=== PATIENT | female | born 1995 | race American Indian/Alaskan Native ===

== ENCOUNTER 2017-04-01 02:45 | Emergency (ER) | payer SELFPAY ==
[2017-04-01 02:51] VITALS: BMI 25.8
[2017-04-01 02:53] VITALS: BP 118/64; PULSE 82; RESP 18; TEMP 98.4; O2SAT 99
--- NOTE | 2017-04-01 03:04 | ED PDOC ---
Arrival/HPI - General Chief Complaint: Allergic Reaction Time Seen by Provider: 04/01/17 02:57 Historian: Patient - History of Present Illness Narrative History of Present Illness (Text): 04/01/17 03:03 A 22 year old female, whose past medical history includes pyelonephritis, presents to the emergency department complaining of allergic reaction prior to arrival. Patient reports she has a stuffy nose and rhinorrhea. Patient has no rashes, hives, or any other complaints. No PMD Time/Duration: Prior to Arrival Past Medical History - Provider Review Nursing Documentation Reviewed: Yes - Past History Past History: No Previous - Infectious Disease Hx of Infectious Diseases: None - Tetanus Immunization Tetanus Immunization: Unknown - Past Medical History Past Medical History: No Previous - Cardiac Hx Cardiac Disorders: No - Pulmonary Hx Respiratory Disorders: No - Neurological Hx Neurological Disorder: No - HEENT Hx HEENT Disorder: Yes (Right eye surgery) - Renal Hx Renal Disorder: Yes Hx Pyelonephritis: Yes - Endocrine/Metabolic Hx Endocrine Disorders: No - Hematological/Oncological Hx Blood Disorders: No - Integumentary Hx Dermatological Disorder: No - Musculoskeletal/Rheumatological Hx Musculoskeletal Disorders: No Hx Falls: No - Gastrointestinal Hx Gastrointestinal Disorders: No - Genitourinary/Gynecological Hx Genitourinary Disorders: Yes Hx Urinary Tract Infection: Yes - Psychiatric Hx Psychophysiologic Disorder: No Hx Substance Use: No - Past Surgical History Past Surgical History: Non-Contributing - Surgical History Hx Eye Surgery: Yes (R eye x2) Other/Comment: . Right eye surgery - Anesthesia Hx Anesthesia: Yes Hx Anesthesia Reactions: No - Suicidal Assessment Feels Threatened In Home Enviroment: No Family/Social History - Physician Review Nursing Documentation Reviewed: Yes Family/Social History: No Known Family HX Smoking Status: Never Smoked Hx Alcohol Use: Yes Hx Substance Use: No Hx Substance Use Treatment: No Allergies/Home Meds Allergies/Adverse Reactions: Allergies No Known Allergies Allergy (Verified 07/26/16 18:17) Review of Systems - Physician Review All systems were reviewed & negative as marked: Yes - Review of Systems Constitutional: absent: Fevers, Night Sweats ENT: Rhinorrhea, Sinus Congestion Cardiovascular: absent: Chest Pain Gastrointestinal: absent: Abdominal Pain Skin: absent: Rash, Other (no hives) Physical Exam Vital Signs Reviewed: Yes Vital Signs Temp Pulse Resp BP Pulse Ox 04/01/17 02:51 98.4 F 82 18 118/64 99 Temperature: Afebrile Blood Pressure: Normal Pulse: Regular Respiratory Rate: Normal Appearance: Positive for: Well-Appearing Pain Distress: None Mental Status: Positive for: Alert and Oriented X 3 - Systems Exam Head: Present: Atraumatic, Normocephalic Pupils: Present: PERRL Extroacular Muscles: Present: EOMI Conjunctiva: Present: Normal Mouth: Present: Moist Mucous Membranes Neck: Present: Normal Range of Motion Respiratory/Chest: Present: Clear to Auscultation, Good Air Exchange. No: Respiratory Distress, Accessory Muscle Use Cardiovascular: Present: Regular Rate and Rhythm, Normal S1, S2. No: Murmurs Abdomen: Present: Normal Bowel Sounds. No: Tenderness, Distention, Peritoneal Signs Back: Present: Normal Inspection Upper Extremity: Present: Normal Inspection. No: Cyanosis, Edema Lower Extremity: Present: Normal Inspection. No: Edema Neurological: Present: GCS=15, CN II-XII Intact, Speech Normal Skin: Present: Warm, Dry, Normal Color. No: Rashes Psychiatric: Present: Alert, Oriented x 3, Normal Insight, Normal Concentration Medical Decision Making ED Course and Treatment: 04/01/17 03:05 Impression: 22 year old female with allergic reaction. No acute findings on physical exam; no rashes/hives are present. Plan: -- Sudafed Tab -- Reassess and disposition Prior Visits: Notes and results from previous visits were reviewed. Patient was last seen in the emergency department on 07/26/2016 for intermittent crampy atraumatic left medial thigh pain. Patient was discharged home. Progress Notes: - Medication Orders Current Medication Orders: Discontinued Medications Pseudoephedrine HCl (Sudafed Tab) 30 mg PO STAT STA Stop: 04/01/17 03:02 Last Admin: 04/01/17 03:16 Dose: 30 mg - Scribe Statement The provider has reviewed the documentation as recorded by the Kimberly Strickland Provider Scribe Attestation: All medical record entries made by the Scribe were at my direction and personally dictated by me. I have reviewed the chart and agree that the record accurately reflects my personal performance of the history, physical exam, medical decision making, and the department course for this patient. I have also personally directed, reviewed, and agree with the discharge instructions and disposition. Disposition/Present on Arrival - Present on Arrival Any Indicators Present on Arrival: No History of DVT/PE: No History of Uncontrolled Diabetes: No Urinary Catheter: No History of Decub. Ulcer: No History Surgical Site Infection Following: None - Disposition Have Diagnosis and Disposition been Completed?: Yes Diagnosis: Allergic rhinitis Disposition: HOME/ ROUTINE Disposition Time: 03:30 Condition: GOOD Discharge Instructions (ExitCare): Allergic Rhinitis (ED) Prescriptions: Fexofenadine/Pseudoephedrine [Johanna-D 12 Hour Tablet] 1 each PO BID #20 tab.er.12h Fluticasone Nasal [Flonase] 2 actuation NS DAILY #1 spr Referrals: PCP,NO [Primary Care Provider] - Follow up with primary Forms: [employer] (Macedonian)
== END 2017-04-01 03:27 | disposition home or self-care (01) ==
LOC: ED 02:45
DX: J30.9 Allergic rhinitis, unspecified (principal)

== ENCOUNTER 2017-04-08 16:17 | Emergency (ER) | payer MEDICAID, OTHER ==
[2017-04-08 16:18] VITALS: BMI 25.8
[2017-04-08 16:53] VITALS: BP 120/80; PULSE 71; RESP 18; TEMP 99; O2SAT 98
--- NOTE | 2017-04-08 17:02 | ED PDOC ---
Arrival/HPI - General Chief Complaint: Trauma Time Seen by Provider: 04/08/17 16:45 Historian: Patient - History of Present Illness Narrative History of Present Illness (Text): 04/08/17 22 yo female come in for evaluation of left sided headache, some Left sided scalp tenderness gradually developed since yesterday after collide with another player, while playing basketball. Pt sts, (-) helmet, felt little dizzy after the accident. Otherwise, pt denies LOC, syncope, visual changes, denies worse headache of life, N/V, neck pain, CP, SOB, dyspnea, palpitation, abd. pain, denies weakness, deformity, sensory or vascular deficits to B/L UEs and LEs, denies anticoagulation tx, denies previous hx of head injury or concussion. Ambulate to Ed for evaluation, not in any apparent distress. Past Medical History - Provider Review Nursing Documentation Reviewed: Yes - Travel History Have you recently traveled outside [place] w/in the past 3 mons?: No - Past History Past History: No Previous - Infectious Disease Hx of Infectious Diseases: None - Tetanus Immunization Tetanus Immunization: Unknown - Reproductive Menopause: No - Past Medical History Past Medical History: No Previous - Cardiac Hx Cardiac Disorders: No - Pulmonary Hx Respiratory Disorders: No - Neurological Hx Neurological Disorder: No - HEENT Hx HEENT Disorder: Yes (Right eye surgery) - Renal Hx Renal Disorder: Yes Hx Pyelonephritis: Yes - Endocrine/Metabolic Hx Endocrine Disorders: No - Hematological/Oncological Hx Blood Disorders: No - Integumentary Hx Dermatological Disorder: No - Musculoskeletal/Rheumatological Hx Musculoskeletal Disorders: No Hx Falls: No - Gastrointestinal Hx Gastrointestinal Disorders: No - Genitourinary/Gynecological Hx Genitourinary Disorders: Yes Hx Urinary Tract Infection: Yes - Psychiatric Hx Psychophysiologic Disorder: No Hx Substance Use: No - Past Surgical History Past Surgical History: Non-Contributing - Surgical History Hx Eye Surgery: Yes (R eye x2) Other/Comment: . Right eye surgery - Anesthesia Hx Anesthesia: Yes Hx Anesthesia Reactions: No - Suicidal Assessment Feels Threatened In Home Enviroment: No Family/Social History - Physician Review Nursing Documentation Reviewed: Yes Family/Social History: No Known Family HX Smoking Status: Never Smoked Hx Alcohol Use: Yes Hx Substance Use: No Hx Substance Use Treatment: No Allergies/Home Meds Allergies/Adverse Reactions: Allergies seasonal Allergy (Uncoded 04/08/17 16:52) CONGESTION Home Medications: Home Meds Medication Instructions Recorded Confirmed Fexofenadine/Pseudoephedrine 1 each PO DAILY 04/08/17 04/08/17 [Johanna-D 12 Hour Tablet] Review of Systems - Review of Systems Constitutional: Normal Eyes: Normal ENT: Normal Respiratory: Normal Cardiovascular: Normal Gastrointestinal: Normal Genitourinary Female: Normal Musculoskeletal: Normal Skin: Normal Neurological: Headache. absent: Dizziness, Focal Weakness, Gait Changes, Speech Changes Endocrine: Normal Hemo/Lymphatic: Normal Psychiatric: Normal Physical Exam Vital Signs Temp Pulse Resp BP Pulse Ox 04/08/17 16:35 99 F 71 18 120/80 98 Temperature: Afebrile Blood Pressure: Normal Pulse: Regular Respiratory Rate: Normal Appearance: Positive for: Well-Appearing, Non-Toxic, Comfortable Pain Distress: None Mental Status: Positive for: Alert and Oriented X 3 - Systems Exam Head: Present: Normocephalic, Tenderness (mild over Left parietal scalp. No palpable bony step offs deformity, no edema.) Pupils: Present: PERRL Extroacular Muscles: Present: EOMI Conjunctiva: Present: Normal Ears: Present: NORMAL TM, Normal Canal Mouth: Present: Moist Mucous Membranes, Normal Lips. No: Drooling, Trismus Nose (External): Present: Atraumatic Nose (Internal): No: Septal Deviation, Septal Hematoma Neck: Present: Normal Range of Motion, Trachea Midline. No: MIDLINE TENDERNESS Respiratory/Chest: Present: Clear to Auscultation, Good Air Exchange. No: Respiratory Distress, Accessory Muscle Use Cardiovascular: Present: Regular Rate and Rhythm, Normal S1, S2. No: Murmurs Abdomen: Present: Normal Bowel Sounds. No: Tenderness, Distention, Peritoneal Signs Back: Present: Normal Inspection. No: Paraspinal Tenderness Upper Extremity: Present: Normal ROM, NORMAL PULSES. No: Deformity Lower Extremity: Present: Normal ROM. No: Edema, Tenderness, Deformity Neurological: Present: GCS=15, Speech Normal, Motor Func Grossly Intact, Normal Sensory Function, Normal Cerebellar Funct, Norm Deep Tendon Reflexes, Gait Normal Skin: Present: Warm, Dry, Normal Color. No: Rashes Psychiatric: Present: Alert, Oriented x 3, Normal Insight, Normal Concentration Medical Decision Making ED Course and Treatment: 04/08/17 On re-evaluation, pt is afebrile, hemodyhanmicaly stable. Non-toxic. Ambulatory in ED with stable gait. Head: AT/NC neck: Supple, (-) midline tenderness. Lungs: CTA B/L, BS equal B/L. ABd: benign. Neurologicaly intact. Pt was offered imaging, CT head w/o contrast. Risk vs benefits discussed with pt , pt refused imaging at present time. Pt has clinical findings c/w head injury/post concussion syndrome. Pt advised OBS 48 hrs for any sign of head injury-return to ED immediately for re-evaluation. Pt understand stable for discharge now. Disposition/Present on Arrival - Present on Arrival Any Indicators Present on Arrival: No History of DVT/PE: No History of Uncontrolled Diabetes: No Urinary Catheter: No History of Decub. Ulcer: No History Surgical Site Infection Following: None - Disposition Have Diagnosis and Disposition been Completed?: Yes Diagnosis: Head injury, Post concussive syndrome Disposition: HOME/ ROUTINE Disposition Time: 17:00 Patient Plan: Discharge Patient Problems: Current Active Problems Problem Status Onset Head injury Acute Post concussive syndrome Acute Condition: STABLE Discharge Instructions (ExitCare): Head Injury (ED), Concussion (ED) Additional Instructions: "BRAIN REST" FOR 1 WEEK, AVOID PROLONG EYE STRAINING:READING, COMPUTER, TV OR ANY OTHER ACTIVITY FOR 1 WEEK NO PHYSICAL ACTIVITY FOR 1 WEEK OBSERVE 48 HOURS FOR ANY SIGN OF HEAD INJURY-INTRACTABLE HEADACHE, VISUAL CHANGES, VOMITING, LETHARGY OR ANY OTHER NEW CHANGES-RETURN TO ED IMMEDIATELY FOR RE-EVALUATION. FOLLOW UP WITH PMD, CONCUSSION CLINIC AT [facility] IN 2-3 DAYS FOR RE -EVALUATION. Referrals: [facility] at [facility] [place] [Outside] - Follow up with primary [facility] [Provider Group] - Follow up with primary Forms: [employer] (Montenegrin), SCHOOL NOTE
== END 2017-04-08 17:13 | disposition home or self-care (01) ==
LOC: ED 16:17
DX: S09.90XA Unspecified injury of head, initial encounter (principal); W51.XXXA Accidental striking against or bumped into by another person, initial encounter; Y93.67 Activity, basketball; Y92.89 Other specified places as the place of occurrence of the external cause; F07.81 Postconcussional syndrome

== ENCOUNTER 2017-05-13 11:25 | Emergency (ER) | payer MEDICAID ==
[2017-05-13 11:26] VITALS: BMI 25.8
[2017-05-13 12:52] LABS: PH,URINE 7.5 (4.7-8.0); URINE BILIRUBIN NEGATIVE (NEGATIVE); URINE BLOOD LARGE (NEGATIVE); URINE GLUCOSE (UA) NEGATIVE (NEGATIVE); URINE KETONE NEGATIVE (NEGATIVE); URINE LEUKOCYTE ESTERASE SMALL Leu/uL (NEGATIVE); URINE PROTEIN TRACE mg/dL (<30 mg/dL)
[2017-05-13 12:55] LABS: URINE APPEARANCE CLEAR (CLEAR); URINE COLOR YELLOW (YELLOW)
[2017-05-13 13:03] LABS: BASO # 0.02 K/mm3 (0.0-2.0); BASO % 0.1 % (0.0-3.0); EOS # 0.2 (0.0-0.7); GRAN # 14.77 (1.4-6.5); HEMATOCRIT 36.5 % (36.0-48.0); LYMPH # 1.9 (1.2-3.4); LYMPH % 10.9 % (22.0-35.0); MEAN CELL VOLUME 87.7 fl (80.0-105.0); MEAN CORPUSCULAR HEMOGLOBIN 30.3 pg (25.0-35.0); MEAN CORPUSCULAR HGB CONC 34.5 g/dl (31.0-37.0); MEAN PLATELET VOLUME 9.5 fl (7.0-11.0); MONO # 0.9 (0.1-0.6); WHITE BLOOD COUNT 17.8 10^3/ul (4.5-11.0)
[2017-05-13 13:19] LABS: URINE RBC 25 - 30 /hpf (0-2)
[2017-05-13 13:20] LABS: URINE AMORPHOUS SEDIMENT FEW; URINE BACTERIA MANY (NEG)
[2017-05-13 13:30] LABS: INR 1.13 (0.93-1.08)
[2017-05-13 13:31] LABS: PARTIAL THROMBOPLASTIN TIME 28.8 Seconds (25.1-36.5)
--- NOTE | 2017-05-13 13:54 | US ---
PROCEDURE: OB Pelvic Ultrasound HISTORY: , bleeding pelvic pain - r/o etopic COMPARISON: None available. FINDINGS: UTERUS: No intrauterine gestation identified. Uterus measures 9.0 x 5.6 x 7.0 cm. Endometrium measures 30 mm. CERVIX: Long and closed. No cervical abnormality seen. RIGHT OVARY: Measures 3.9 x 3.6 x 4.3 cm.. Normal flow. Immediately adjacent to the right ovary is a thick walled ring-like structure with marked peripheral vascularity, measuring approximately 2.9 x 4.0 cm. This is suspicious for an ectopic gestation. Please correlate with serial beta HCG evaluation. LEFT OVARY: Measures 5.0 x 3.0 x 4.1 cm. No mass. Normal flow. FREE FLUID: None. OTHER FINDINGS: None. IMPRESSION: Thick wall ring-like structure adjacent to the right ovary with marked peripheral vascularity suspicious for an ectopic gestation. No intrauterine gestation identified. Please correlate with serial beta HCG evaluation. No other significant abnormality identified.
[2017-05-13 14:27] LABS: ALB/GLOB RATIO 1.1 (1.1-1.8); ALKALINE PHOSPHATASE 62 U/L (38-126); ALT/SGPT 38 U/L (7-56); AST/SGOT 20 U/L (14-36); BILIRUBIN,TOTAL 0.5 mg/dL (0.2-1.3); BLOOD UREA NITROGEN 6 mg/dL (7-21); CALCIUM 8.9 mg/dL (8.4-10.5); CARBON DIOXIDE 27 mmol/L (21-33); CHLORIDE 105 mmol/L (98-107); GFR AFRICAN-AMERICAN > 60; GLUCOSE,RANDOM 93 mg/dL (70-110); LIPASE 35 U/L (23-300); POTASSIUM 3.8 mmol/L (3.6-5.0); SODIUM 140 mmol/L (132-148); TOTAL PROTEIN 7.1 g/dL (5.8-8.3)
[2017-05-13 15:37] VITALS: TEMP 99.8
[2017-05-13] MEDS ORDERED: Sodium Chloride 0.9% 1,000 ML IV STA (15:50)
--- NOTE | 2017-05-13 16:01 | ED PDOC ---
Arrival/HPI - General Chief Complaint: Abdominal Pain Time Seen by Provider: 05/13/17 11:41 - History of Present Illness Narrative History of Present Illness (Text): 05/13/17 15:58 22 y.o. female, , with a history of pyelonephritis who comes to the ED with complaint of several days of lower abdominal discomfort associated with vaginal bleeding, which she is presuming to be her menses. She says however that the pain does not feel like her typical cramping of her menses. She also has mild mid low back pain. No dysuria or vaginal discharge or fever. No n/v/d. Past Medical History - Past History Past History: No Previous - Infectious Disease Hx of Infectious Diseases: None - Tetanus Immunization Tetanus Immunization: Unknown - Past Medical History Past Medical History: No Previous - Cardiac Hx Cardiac Disorders: No - Pulmonary Hx Respiratory Disorders: No - Neurological Hx Neurological Disorder: No - HEENT Hx HEENT Disorder: Yes (Right eye surgery) - Renal Hx Renal Disorder: Yes Hx Pyelonephritis: Yes - Endocrine/Metabolic Hx Endocrine Disorders: No - Hematological/Oncological Hx Blood Disorders: No - Integumentary Hx Dermatological Disorder: No - Musculoskeletal/Rheumatological Hx Musculoskeletal Disorders: No Hx Falls: No - Gastrointestinal Hx Gastrointestinal Disorders: No - Genitourinary/Gynecological Hx Genitourinary Disorders: Yes Hx Urinary Tract Infection: Yes - Psychiatric Hx Psychophysiologic Disorder: No Hx Substance Use: No - Past Surgical History Past Surgical History: Non-Contributing - Surgical History Hx Eye Surgery: Yes (R eye x2) Other/Comment: . Right eye surgery - Anesthesia Hx Anesthesia: Yes Hx Anesthesia Reactions: No Hx Malignant Hyperthermia: No - Suicidal Assessment Feels Threatened In Home Enviroment: No Family/Social History Family/Social History: Unknown Family HX Smoking Status: Never Smoked Hx Alcohol Use: Yes Hx Substance Use: No Hx Substance Use Treatment: No Allergies/Home Meds Allergies/Adverse Reactions: Allergies seasonal Allergy (Uncoded 04/08/17 16:52) CONGESTION Home Medications: Home Meds Medication Instructions Recorded Confirmed No Known Home Med 05/13/17 05/13/17 Review of Systems - Physician Review All systems were reviewed & negative as marked: Yes - Review of Systems Constitutional: absent: Fevers ENT: Normal Respiratory: absent: SOB, Cough Cardiovascular: Normal Gastrointestinal: Abdominal Pain. absent: Diarrhea, Nausea, Vomiting Genitourinary Female: Vaginal Bleeding. absent: Dysuria, Frequency, Vaginal Discharge Musculoskeletal: Back Pain Skin: Normal Neurological: Normal Endocrine: Normal Hemo/Lymphatic: Normal Physical Exam Vital Signs Temp Pulse Resp BP Pulse Ox 05/13/17 15:36 99.8 F H 05/13/17 13:41 100.0 F H 88 18 146/67 99 05/13/17 12:37 79 18 122/68 100 05/13/17 11:59 98.2 F 85 18 124/71 100 Temperature: Afebrile Blood Pressure: Normal Pulse: Regular Respiratory Rate: Normal Appearance: Positive for: Well-Appearing, Non-Toxic, Comfortable Pain Distress: Mild Mental Status: Positive for: Alert and Oriented X 3 - Systems Exam Head: Present: Atraumatic, Normocephalic Pupils: Present: PERRL Conjunctiva: Present: Normal Mouth: Present: Moist Mucous Membranes Pharnyx: Present: Normal. No: ERYTHEMA, EXUDATE Neck: Present: Normal Range of Motion Respiratory/Chest: Present: Clear to Auscultation, Good Air Exchange. No: Respiratory Distress, Accessory Muscle Use Cardiovascular: Present: Regular Rate and Rhythm, Normal S1, S2. No: Murmurs Abdomen: Present: Normal Bowel Sounds. No: Tenderness, Distention, Peritoneal Signs Genitourinary/Pelvic Exam: Present: Normal External Genitalia, Vaginal Bleeding (minimal), Cervical os Closed, Other (Pelvic exam chaperoned by Liat Barahona, medical student). No: Vaginal Discharge, Vaginal Lesions, Adenexal Tenderness, Cervical Motion Tendernes Back: Present: Normal Inspection Upper Extremity: Present: Normal Inspection. No: Cyanosis, Edema Lower Extremity: Present: Normal Inspection. No: Edema Neurological: Present: GCS=15, CN II-XII Intact, Speech Normal Skin: Present: Warm, Dry, Normal Color. No: Rashes Psychiatric: Present: Alert, Oriented x 3, Normal Insight, Normal Concentration Medical Decision Making ED Course and Treatment: 05/13/17 16:03 22 y.o. female, , LMP unknown; HCG is positive, with lower abd discomfort. Differential: threatened miscarriage vs ectopic Workup: - Labs - sono 05/13/17 16:04 Patient with noted history. She is afebrile (99.8 rectal); labs with WBC of 17.8K but urine is mainly showing RBC with plenty of epithelial cells and no urinary symptoms; culture sent. Chemistry with beta-HCG of 3640. Sono done with results as noted below with no intrauterine and findings concerning for etopic. Patient is well-appearing with stable vitals and stable H/H. She is Rh positive. Transvaginal Sono: FINDINGS: UTERUS: No intrauterine gestation identified. Uterus measures 9.0 x 5.6 x 7.0 cm. Endometrium measures 30 mm. CERVIX: Long and closed. No cervical abnormality seen. RIGHT OVARY: Measures 3.9 x 3.6 x 4.3 cm.. Normal flow. Immediately adjacent to the right ovary is a thick walled ring-like structure with marked peripheral vascularity, measuring approximately 2.9 x 4.0 cm. This is suspicious for an ectopic gestation. Please correlate with serial beta HCG evaluation. LEFT OVARY: Measures 5.0 x 3.0 x 4.1 cm. No mass. Normal flow. FREE FLUID: None. OTHER FINDINGS: None. IMPRESSION: Thick wall ring-like structure adjacent to the right ovary with marked peripheral vascularity suspicious for an ectopic gestation. No intrauterine gestation identified. Please correlate with serial beta HCG evaluation. No other significant abnormality identified. 05/13/17 16:08 Findings on patient concerning for ectopic. Case discussed with on-call [employer] physician, Dr. Shen, who said to transfer the patient to [place], where Dr. Hernandez is on; Dr. Shen noted he will inform Dr. Hernandez of the patient. [place] ER attending, Dr. Dunn, is aware, of transfer. Patient signed consent for transfer. - Lab Interpretations Lab Results: 05/13/17 12:50 05/13/17 14:06 Lab Results 05/13/17 14:21: Blood Type O POSITIVE, Antibody Screen Negative, BBK History Checked No verified bt 05/13/17 14:06: Sodium 140, Potassium 3.8, Chloride 105, Carbon Dioxide 27, Anion Gap 12, BUN 6 L, Creatinine 0.7, Est GFR ( Amer) > 60, Est GFR (Non -Af Amer) > 60, Random Glucose 93, Calcium 8.9, Total Bilirubin 0.5, AST 20, ALT 38, Alkaline Phosphatase 62, Total Protein 7.1, Albumin 3.7, Globulin 3.4, Albumin/Globulin Ratio 1.1, Lipase 35 05/13/17 13:00: Blood Type Cancelled, Antibody Screen Cancelled, BBK History Checked Cancelled 05/13/17 12:50: Beta HCG, Quant 3680.40 H 05/13/17 12:50: PT 12.5, INR 1.13 H, APTT 28.8 05/13/17 12:50: WBC 17.8 H D, RBC 4.16, Hgb 12.6, Hct 36.5, MCV 87.7, MCH 30.3, MCHC 34.5, RDW 14.0, Plt Count 272, MPV 9.5, Gran % 83.0 H, Lymph % (Auto) 10.9 L, [place] % (Auto) 5.0, Eos % (Auto) 1.0 L, Baso % (Auto) 0.1, Gran # 14.77 H, Lymph # 1.9, [place] # 0.9 H, Eos # 0.2, Baso # 0.02 05/13/17 12:40: Urine Color Yellow, Urine Appearance Clear, Urine pH 7.5, Ur Specific [place] 1.020, Urine Protein Trace H, Urine Glucose (UA) Negative, Urine Ketones Negative, Urine Blood Large H, Urine Nitrate Negative, Urine Bilirubin Negative, Urine Urobilinogen 1.0 H, Ur Leukocyte Esterase Small H, Urine RBC 25 - 30, Urine WBC 10 - 15, Ur Epithelial Cells 6 - 8, Amorphous Sediment Few, Urine Bacteria Many, Urine Other Uyeast - RAD Interpretation Radiology Orders: 05/13/17 12:07 OB TRANSVAGINAL [US] Stat Disposition/Present on Arrival - Present on Arrival Any Indicators Present on Arrival: No History of DVT/PE: No History of Uncontrolled Diabetes: No Urinary Catheter: No History of Decub. Ulcer: No History Surgical Site Infection Following: None - Disposition Have Diagnosis and Disposition been Completed?: Yes Diagnosis: Ectopic Disposition: Transfer [facility] Disposition Time: 15:55 Patient Plan: Transfer To ([place]) Condition: STABLE
[2017-05-13 17:15] VITALS: BP 141/79; PULSE 87; RESP 19; O2SAT 100
== END 2017-05-13 16:36 | disposition short-term general hospital (02) ==
LOC: ED 11:25
DX: O00.90 Unspecified ectopic pregnancy without intrauterine pregnancy (principal)

== ENCOUNTER 2017-06-17 22:41 | Emergency (ER) | payer MEDICAID, OTHER ==
[2017-06-17 23:21] VITALS: BP 142/107; PULSE 77; TEMP 98.3; O2SAT 98; BMI 29.8
[2017-06-17 23:25] VITALS: RESP 17
--- NOTE | 2017-06-17 23:55 | ED PDOC ---
Arrival/HPI - General Chief Complaint: Female Genitourinary Time Seen by Provider: 06/17/17 23:32 Historian: Patient - History of Present Illness Narrative History of Present Illness (Text): 06/17/17 23:50 This 22 yo female presents to this ED c/o suprapubic cramping, and vaginal spotting bleeding x 4 weeks. Patient stated symptoms worsen today. Patient stated she has been changing about 4 pads daily. Denies other somatic complains. Time/Duration: Other (see hpi) Context: Home Past Medical History - Provider Review Nursing Documentation Reviewed: Yes - Past History Past History: No Previous - Infectious Disease Hx of Infectious Diseases: None - Tetanus Immunization Tetanus Immunization: Unknown - Past Medical History Past Medical History: No Previous - Cardiac Hx Cardiac Disorders: No - Pulmonary Hx Respiratory Disorders: No - Neurological Hx Neurological Disorder: No - HEENT Hx HEENT Disorder: Yes (Right eye surgery) - Renal Hx Renal Disorder: Yes - Endocrine/Metabolic Hx Endocrine Disorders: No - Hematological/Oncological Hx Blood Disorders: No - Integumentary Hx Dermatological Disorder: No - Musculoskeletal/Rheumatological Hx Musculoskeletal Disorders: No Hx Falls: No - Gastrointestinal Hx Gastrointestinal Disorders: No - Genitourinary/Gynecological Hx Genitourinary Disorders: Yes Hx Urinary Tract Infection: Yes - Psychiatric Hx Depression: No Hx Substance Use: No - Past Surgical History Past Surgical History: Non-Contributing - Surgical History Hx Eye Surgery: Yes (R eye x2) Other/Comment: . Right eye surgery - Anesthesia Hx Anesthesia: Yes Hx Anesthesia Reactions: No Hx Malignant Hyperthermia: No - Suicidal Assessment Feels Threatened In Home Enviroment: No Family/Social History - Physician Review Nursing Documentation Reviewed: Yes Family/Social History: Other (noncontributory) Smoking Status: Never Smoked Hx Alcohol Use: Yes Hx Substance Use: No Hx Substance Use Treatment: No Allergies/Home Meds Allergies/Adverse Reactions: Allergies seasonal Allergy (Uncoded 06/17/17 23:21) CONGESTION Home Medications: Home Meds Medication Instructions Recorded Confirmed No Known Home Med 05/13/17 06/17/17 Review of Systems - Review of Systems Constitutional: Normal. absent: Fatigue, Weight Change, Fevers Eyes: Normal ENT: Normal Respiratory: Normal Cardiovascular: Normal Gastrointestinal: Normal Genitourinary Female: Vaginal Bleeding. absent: Dysuria, Frequency, Hematuria, Vaginal Discharge Musculoskeletal: Normal Skin: Normal Neurological: Normal Endocrine: Normal Hemo/Lymphatic: Normal Psychiatric: Normal Physical Exam Vital Signs Temp Pulse Resp BP Pulse Ox 06/17/17 23:21 98.3 F 77 17 142/107 H 98 06/17/17 23:20 98.3 F 77 18 142/107 H 98 Temperature: Afebrile Blood Pressure: Hypertensive Pulse: Regular Respiratory Rate: Normal Appearance: Positive for: Well-Appearing, Non-Toxic, Comfortable Pain Distress: None Mental Status: Positive for: Alert and Oriented X 3 - Systems Exam Head: Present: Atraumatic, Normocephalic Mouth: Present: Moist Mucous Membranes Neck: Present: Normal Range of Motion Respiratory/Chest: Present: Clear to Auscultation, Good Air Exchange. No: Respiratory Distress, Accessory Muscle Use Cardiovascular: Present: Regular Rate and Rhythm, Normal S1, S2. No: Murmurs Abdomen: Present: Normal Bowel Sounds. No: Tenderness, Distention, Peritoneal Signs, Rebound, Guarding Back: Present: Normal Inspection. No: CVA Tenderness Upper Extremity: Present: Normal Inspection, Normal ROM. No: Edema Lower Extremity: Present: Normal Inspection, Normal ROM. No: Edema Neurological: Present: GCS=15, CN II-XII Intact, Speech Normal, Motor Func Grossly Intact, Normal Sensory Function, Normal Cerebellar Funct, Gait Normal Skin: Present: Warm, Dry, Normal Color. No: Rashes Psychiatric: Present: Alert, Oriented x 3, Normal Insight, Normal Concentration Medical Decision Making ED Course and Treatment: 06/18/17 00:19 Patient refused pelvic exam 06/18/17 01:19 Re-evaluation. Patient feels better. Discussed results and plan with patient who expresses understanding. All questions answered and there is agreement with the plan to discharge home with instructions. Patient stable for discharge. Return if symptoms persist or worsen. Patient has a normal gait, no neuro focal deficits Re-evaluation Time: 01:20 Reassessment Condition: Re-examined, Improved - Lab Interpretations Lab Results: 06/18/17 00:35 06/18/17 00:35 Lab Results 06/18/17 00:35: Urine HCG, Qual Negative 06/18/17 00:35: Sodium 139, Potassium 3.9, Chloride 104, Carbon Dioxide 27, Anion Gap 12, BUN 15, Creatinine 0.9, Est GFR ( Amer) > 60, Est GFR (Non- Af Amer) > 60, Random Glucose 88, Calcium 9.1, Total Bilirubin 0.3, AST 30, ALT 28, Alkaline Phosphatase 53, Total Protein 7.5, Albumin 4.3, Globulin 3.2, Albumin/Globulin Ratio 1.3 06/18/17 00:35: Urine Color Yellow, Urine Appearance Sl cloudy, Urine pH 7.5, Ur Specific [place] 1.015, Urine Protein Trace H, Urine Glucose (UA) Negative, Urine Ketones Negative, Urine Blood Large H, Urine Nitrate Negative, Urine Bilirubin Negative, Urine Urobilinogen 1.0 H, Ur Leukocyte Esterase Negative, Urine RBC 5 - 10, Urine WBC 0 - 2, Ur Epithelial Cells 1 - 3 06/18/17 00:35: WBC 10.6 D, RBC 4.33, Hgb 12.7, Hct 38.7, MCV 89.4, MCH 29.3, MCHC 32.8, RDW 14.5, Plt Count 284, MPV 9.6, Gran % 60.3, Lymph % (Auto) 31.6, [place] % (Auto) 5.7, Eos % (Auto) 2.1, Baso % (Auto) 0.3, Gran # 6.40, Lymph # 3.4 , [place] # 0.6, Eos # 0.2, Baso # 0.03 I have reviewed the lab results: Yes Interpretation: No clinic. lab abnormalty Disposition/Present on Arrival - Present on Arrival Any Indicators Present on Arrival: No History of DVT/PE: No History of Uncontrolled Diabetes: No Urinary Catheter: No History of Decub. Ulcer: No History Surgical Site Infection Following: None - Disposition Have Diagnosis and Disposition been Completed?: Yes Diagnosis: Vagina bleeding Disposition: HOME/ ROUTINE Disposition Time: 01:21 Patient Plan: Discharge Condition: GOOD Discharge Instructions (ExitCare): Dysfunctional Uterine Bleeding (ED) Additional Instructions: Call private [facility] doctor for follow up visit in 1-2 days. Call clinic if unable to see your [facility]. Return to emergency if bleeding worsen. Review urine culture result in 3 days with your doctor Have your blood pressure check during your next doctor visit. Referrals: [facility] [Outside] - Follow [facility] with [facility] [Outside] - Follow up with primary Forms: [employer] (Lithuanian), WORK NOTE
[2017-06-18 00:51] LABS: PH,URINE 7.5 (4.7-8.0); URINE BILIRUBIN NEGATIVE (NEGATIVE); URINE BLOOD LARGE (NEGATIVE); URINE GLUCOSE (UA) NEGATIVE (NEGATIVE); URINE KETONE NEGATIVE (NEGATIVE); URINE LEUKOCYTE ESTERASE NEGATIVE Leu/uL (NEGATIVE); URINE PROTEIN TRACE mg/dL (<30 mg/dL)
[2017-06-18 00:53] LABS: BASO # 0.03 K/mm3 (0.0-2.0); BASO % 0.3 % (0.0-3.0); EOS # 0.2 (0.0-0.7); EOS % 2.1 % (1.5-5.0); GRAN # 6.4 (1.4-6.5); GRAN % 60.3 % (50.0-68.0); HEMATOCRIT 38.7 % (36.0-48.0); LYMPH # 3.4 (1.2-3.4); LYMPH % 31.6 % (22.0-35.0); MEAN CELL VOLUME 89.4 fl (80.0-105.0); MEAN CORPUSCULAR HEMOGLOBIN 29.3 pg (25.0-35.0); MEAN CORPUSCULAR HGB CONC 32.8 g/dl (31.0-37.0); MEAN PLATELET VOLUME 9.6 fl (7.0-11.0); MONO # 0.6 (0.1-0.6); MONO % 5.7 % (1.0-6.0); RED CELL DISTRIBUTION WIDTH 14.5 % (11.5-14.5); WHITE BLOOD COUNT 10.6 10^3/ul (4.5-11.0)
[2017-06-18 00:57] LABS: URINE APPEARANCE SL CLOUDY (CLEAR); URINE COLOR YELLOW (YELLOW)
[2017-06-18 01:00] LABS: ALB/GLOB RATIO 1.3 (1.1-1.8); ALKALINE PHOSPHATASE 53 U/L (38-126); ALT/SGPT 28 U/L (7-56); AST/SGOT 30 U/L (14-36); BILIRUBIN,TOTAL 0.3 mg/dL (0.2-1.3); BLOOD UREA NITROGEN 15 mg/dL (7-21); CALCIUM 9.1 mg/dL (8.4-10.5); CARBON DIOXIDE 27 mmol/L (21-33); CHLORIDE 104 mmol/L (98-107); GFR AFRICAN-AMERICAN > 60; GLUCOSE,RANDOM 88 mg/dL (70-110); POTASSIUM 3.9 mmol/L (3.6-5.0); SODIUM 139 mmol/L (132-148); TOTAL PROTEIN 7.5 g/dL (5.8-8.3)
[2017-06-18 01:11] LABS: URINE WBC 0 - 2 /hpf (0-6)
== END 2017-06-18 01:33 | disposition home or self-care (01) ==
LOC: ED 22:41
DX: N93.8 Other specified abnormal uterine and vaginal bleeding (principal)

== ENCOUNTER 2017-07-02 02:52 | Emergency (ER) | payer OTHER ==
[2017-07-02 02:52] VITALS: BMI 29.8
== END 2017-07-02 04:40 | disposition left against medical advice (07) ==
LOC: ED 02:52
DX: Z02.89 Encounter for other administrative examinations (principal); R10.9 Unspecified abdominal pain

== ENCOUNTER 2017-08-25 20:39 | Emergency (ER) | payer OTHER ==
[2017-08-25 20:39] VITALS: BMI 29.8
[2017-08-25 20:54] VITALS: BP 127/83; O2SAT 99
[2017-08-25] MEDS ORDERED: Sodium Chloride 0.9% 1,000 ML IV STA (21:15)
[2017-08-25] MEDS ORDERED: DiphenhydrAMINE 50 mg/ml Inj IVP STA ×2 (21:16→21:55)
--- NOTE | 2017-08-25 21:23 | ED PDOC ---
Arrival/HPI - General Historian: Patient - History of Present Illness Time/Duration: Other (see hpi) Context: Home <Sandra Eduardo - Last Filed: 08/25/17 22:59> <Jarvis Sr - Last Filed: 08/25/17 23:18> - General Chief Complaint: Headache Time Seen by Provider: 08/25/17 21:07 - History of Present Illness Narrative History of Present Illness (Text): 08/25/17 21:19 This 22 yo female presents to this ED c/o TOLBERT x 2 days. Patient stated TOLBERT has worsen today. Pain is described as throbbing, bilateral, with photophobia. Patient denies nausea, vomiting, sore throat, earache, diplopia, dysarthria, sob , cp, hemoptysis, dizziness, or abnormal gait. (Sandra Eduardo) Past Medical History - Provider Review Nursing Documentation Reviewed: Yes - Past History Past History: No Previous - Infectious Disease Hx of Infectious Diseases: None - Tetanus Immunization Tetanus Immunization: Unknown - Past Medical History Past Medical History: No Previous - Cardiac Hx Cardiac Disorders: No - Pulmonary Hx Respiratory Disorders: No - Neurological Hx Neurological Disorder: No - HEENT Hx HEENT Disorder: Yes (Right eye surgery) - Renal Hx Renal Disorder: Yes - Endocrine/Metabolic Hx Endocrine Disorders: No - Hematological/Oncological Hx Blood Disorders: No - Integumentary Hx Dermatological Disorder: No - Musculoskeletal/Rheumatological Hx Musculoskeletal Disorders: No Hx Falls: No - Gastrointestinal Hx Gastrointestinal Disorders: No - Genitourinary/Gynecological Hx Genitourinary Disorders: Yes Hx Urinary Tract Infection: Yes - Psychiatric Hx Depression: No Hx Substance Use: No - Past Surgical History Past Surgical History: Non-Contributing - Surgical History Hx Eye Surgery: Yes (R eye x2) Other/Comment: . Right eye surgery - Anesthesia Hx Anesthesia: Yes Hx Anesthesia Reactions: No Hx Malignant Hyperthermia: No - Suicidal Assessment Feels Threatened In Home Enviroment: No <Sandra Eduardo - Last Filed: 08/25/17 22:59> Family/Social History - Physician Review Nursing Documentation Reviewed: Yes Family/Social History: Other (noncontributory) Smoking Status: Never Smoked Hx Alcohol Use: Yes Hx Substance Use: No Hx Substance Use Treatment: No <Sandra Eduardo - Last Filed: 08/25/17 22:59> Allergies/Home Meds <Sandra Eduardo - Last Filed: 08/25/17 22:59> <Jarvis Sr - Last Filed: 08/25/17 23:18> Allergies/Adverse Reactions: Allergies seasonal Allergy (Uncoded 06/17/17 23:21) CONGESTION Review of Systems - Review of Systems Constitutional: Normal. absent: Fatigue, Weight Change, Fevers, Night Sweats Eyes: Normal ENT: Normal, Rhinorrhea. absent: Sore Throat, Epistaxis, Sinus Congestion Respiratory: Normal. absent: SOB, Cough, Sputum, Wheezing Cardiovascular: Normal. absent: Chest Pain, Palpitations Gastrointestinal: Nausea. absent: Abdominal Pain, Constipation, Diarrhea, Vomiting Genitourinary Female: Normal. absent: Dysuria, Frequency, Vaginal Bleeding, Vaginal Discharge Musculoskeletal: Normal. absent: Back Pain, Neck Pain, Myalgias Skin: Normal. absent: Rash Neurological: Headache. absent: Dizziness, Focal Weakness, Gait Changes, Speech Changes, Facial Droop, Disequilibrium, Seizure Endocrine: Normal Hemo/Lymphatic: Normal Psychiatric: Normal <Sandra Eduardo P - Last Filed: 08/25/17 22:59> Physical Exam Temperature: Afebrile Blood Pressure: Normal Pulse: Regular Respiratory Rate: Normal Appearance: Positive for: Well-Appearing, Non-Toxic, Comfortable Pain Distress: None Mental Status: Positive for: Alert and Oriented X 3 - Systems Exam Head: Present: Atraumatic, Normocephalic Pupils: Present: PERRL Extroacular Muscles: Present: EOMI Conjunctiva: Present: Normal Mouth: Present: Moist Mucous Membranes Neck: Present: Normal Range of Motion Respiratory/Chest: Present: Clear to Auscultation, Good Air Exchange. No: Respiratory Distress, Accessory Muscle Use Cardiovascular: Present: Regular Rate and Rhythm, Normal S1, S2. No: Murmurs Abdomen: Present: Normal Bowel Sounds. No: Tenderness, Distention, Peritoneal Signs Back: Present: Normal Inspection Upper Extremity: Present: Normal Inspection, Normal ROM. No: Cyanosis, Edema Lower Extremity: Present: Normal Inspection, Normal ROM. No: Edema Neurological: Present: GCS=15, CN II-XII Intact, Speech Normal, Motor Func Grossly Intact, Normal Sensory Function, Normal Cerebellar Funct, Gait Normal, Memory Normal Skin: Present: Warm, Dry, Normal Color. No: Rashes Psychiatric: Present: Alert, Oriented x 3, Normal Insight, Normal Concentration <Eduardo,Nahim P - Last Filed: 08/25/17 22:59> Vital Signs Temp Resp BP Pulse Ox 08/25/17 20:49 98.8 F 18 127/83 99 Medical Decision Making Re-evaluation Time: 23:05 Reassessment Condition: Re-examined, Improved - Lab Interpretations I have reviewed the lab results: Yes Interpretation: No clinic. lab abnormalty <Carla Eduardoim P - Last Filed: 08/25/17 22:59> <Jarvis Sr - Last Filed: 08/25/17 23:18> ED Course and Treatment: 08/25/17 23:00 Re-evaluation. Patient feels better. Discussed results and plan with patient who expresses understanding. All questions answered and there is agreement with the plan to discharge home with instructions. Patient stable for discharge. Return if symptoms persist or worsen. Patient denies urinary symptoms, pelvic pain, vaginal discharge, vaginal bleeding, or abdominal pain. Patient stated , LMP was 08-10-17. Urine was positive. Patient TOLBERT has improved. Patient stated she feels well, and she wishes to be discharge home. Patient was recommended to f/u [facility] in 1-2 days. UA has some bacteria. Since patient is with TOLBERT, I will recommend Keflex (Eduardo,Nahim P) - Lab Interpretations Lab Results: Lab Results 08/25/17 21:15: Urine Color Yellow, Urine Appearance Sl cloudy, Urine pH 6.0, Ur Specific [place] >= 1.030, Urine Protein Trace H, Urine Glucose (UA) Negative , Urine Ketones Trace H, Urine Blood Negative, Urine Nitrate Negative, Urine Bilirubin Negative, Urine Urobilinogen 0.2, Ur Leukocyte Esterase Trace H, Urine RBC 0 - 2, Urine WBC 2 - 5, Ur Epithelial Cells 4 - 5, Urine Bacteria Few , Urine HCG, Qual Positive - Medication Orders Current Medication Orders: Discontinued Medications Cephalexin Monohydrate (Keflex) 500 mg PO STAT STA PRN Reason: Protocol Stop: 08/25/17 23:00 Diphenhydramine HCl (Benadryl) 25 mg IVP STAT STA Stop: 08/25/17 21:56 Last Admin: 08/25/17 22:15 Dose: 25 mg IVP Administration Document 08/25/17 22:15 EQ (Rec: 08/25/17 22:15 EQ [id number]) Charges for Administration # of IVP Administrations 1 Sodium Chloride (Sodium Chloride 0.9%) 1,000 mls @ 999 mls/hr IV .Q1H1M STA Stop: 08/25/17 22:15 Last Admin: 08/25/17 22:15 Dose: 999 mls/hr eMAR Start Stop Document 08/25/17 22:15 EQ (Rec: 08/25/17 22:15 EQ [id number]) Intravenous Solution Start Date 08/25/17 Start Time 22:15 Metoclopramide HCl (Reglan) 10 mg IVP STAT STA Stop: 08/25/17 21:17 Last Admin: 08/25/17 22:15 Dose: 10 mg IVP Administration Document 08/25/17 22:15 EQ (Rec: 08/25/17 22:15 EQ [id number]) Charges for Administration # of IVP Administrations 1 - PA / SHODER FILLER / Resident Statement / has reviewed & agrees with the documentation as recorded. <Jarvis Sr - Last Filed: 08/25/17 23:18> Disposition/Present on Arrival - Present on Arrival Any Indicators Present on Arrival: No History of DVT/PE: No History of Uncontrolled Diabetes: No Urinary Catheter: No History of Decub. Ulcer: No History Surgical Site Infection Following: None - Disposition Have Diagnosis and Disposition been Completed?: Yes Disposition Time: 23:06 Patient Plan: Discharge <Sandra Eduardo - Last Filed: 08/25/17 22:59> <Jarvis Sr - Last Filed: 08/25/17 23:18> - Disposition Diagnosis: , Headache Condition: IMPROVED Discharge Instructions (ExitCare): Headache, Adult, - The First Month Additional Instructions: Call private [facility] or clinic for follow up visit in 1-2 days. Take medication as instructed. return to emergency if TOLBERT . Drink enough fluids and rest. Prescriptions: Cephalexin [Keflex] 500 mg PO BID #10 capsule #103/Iron Fumarate/FA [ Tablet] 1 each PO DAILY #30 tablet Referrals: Argelia Mcconnell, [Primary Care Provider] - Follow up with primary [facility] [Outside] - [facility] with [facility] [Outside] - Follow up with primary Forms: [employer] (Maori), WORK NOTE
[2017-08-25 21:53] LABS: URINE BILIRUBIN NEGATIVE (NEGATIVE); URINE BLOOD NEGATIVE (NEGATIVE); URINE GLUCOSE (UA) NEGATIVE (NEGATIVE); URINE LEUKOCYTE ESTERASE TRACE Leu/uL (NEGATIVE); URINE NITRATE NEGATIVE (NEGATIVE); URINE PROTEIN TRACE mg/dL (<30 mg/dL); URINE UROBILINOGEN 0.2 E.U./dL (<1 E.U./dL)
[2017-08-25 22:47] LABS: HCG,QUALITATIVE URINE POSITIVE (NEGATIVE); URINE APPEARANCE SL CLOUDY (CLEAR); URINE COLOR YELLOW (YELLOW)
[2017-08-25 22:50] LABS: URINE BACTERIA FEW (NEG); URINE RBC 0 - 2 /hpf (0-2)
[2017-08-25 23:27] VITALS: PULSE 82; RESP 19; TEMP 98.9
== END 2017-08-25 23:27 | disposition home or self-care (01) ==
LOC: ED 20:39
DX: O26.90 Pregnancy related conditions, unspecified, unspecified trimester (principal); R51 Headache; Z3A.00 Weeks of gestation of pregnancy not specified
CPT/HCPCS: 81001; 84702; 84703; 87086; 96374; 96375; 99285; J1200; J2765; J7040

== ENCOUNTER 2017-09-21 02:47 | Emergency (ER) | payer MEDICAID, OTHER ==
[2017-09-21 02:48] VITALS: BMI 29.8
[2017-09-21 03:12] VITALS: TEMP 98
[2017-09-21] MEDS ORDERED: Sodium Chloride 0.9% 1,000 ML IV STA (03:25)
--- NOTE | 2017-09-21 03:39 | ED PDOC ---
Addendum entered and electronically signed by Renzo Contreras DO 09/21/17 06: 08: History of Present Illness History of Present Illness: patients pain is persistent since her elective AB. She was only prescribed a few tabs of pain medicine at that time. Today her symptoms are improving. Original Note: Arrival/HPI - General Historian: Patient - History of Present Illness Time/Duration: < week Symptom Onset: Gradual Symptom Course: Worsening Quality: Aching <Renzo Contreras - Last Filed: 09/21/17 06:05> <Jarvis Sr - Last Filed: 09/21/17 06:14> - General Time Seen by Provider: 09/21/17 02:54 - History of Present Illness Narrative History of Present Illness (Text): 09/21/17 03:37 Patient is a 22F who comes in with a CC of abdominal and back pain. Patient states she had an elective on misoprostol for 4 days and now is having increasing abdominal pain. Patient is still having vaginal bleeding but not as much as previously. [facility] She [facility] today when she was having the increasing abdominal pain and they told her to come to the ED. Patient denies any fever. No other complaints at this time. (Renzo Contreras) Past Medical History - Past History Past History: No Previous - Infectious Disease Hx of Infectious Diseases: None - Tetanus Immunization Tetanus Immunization: Unknown - Reproductive Menopause: No - Past Medical History Past Medical History: No Previous - Cardiac Hx Cardiac Disorders: No - Pulmonary Hx Respiratory Disorders: No - Neurological Hx Neurological Disorder: No - HEENT Hx HEENT Disorder: Yes (Right eye surgery) - Renal Hx Renal Disorder: Yes - Endocrine/Metabolic Hx Endocrine Disorders: No - Hematological/Oncological Hx Blood Disorders: No - Integumentary Hx Dermatological Disorder: No - Musculoskeletal/Rheumatological Hx Musculoskeletal Disorders: No Hx Falls: No - Gastrointestinal Hx Gastrointestinal Disorders: No - Genitourinary/Gynecological Hx Genitourinary Disorders: Yes Hx Urinary Tract Infection: Yes - Psychiatric Hx Depression: No Hx Substance Use: No - Past Surgical History Past Surgical History: Non-Contributing - Surgical History Hx Eye Surgery: Yes (R eye x2) Other/Comment: . Right eye surgery - Anesthesia Hx Anesthesia: Yes Hx Anesthesia Reactions: No Hx Malignant Hyperthermia: No - Suicidal Assessment Feels Threatened In Home Enviroment: No <Renzo Contreras - Last Filed: 09/21/17 06:05> Family/Social History Family/Social History: Unknown Family HX Smoking Status: Never Smoked Hx Alcohol Use: Yes Hx Substance Use: No Hx Substance Use Treatment: No <Renzo Contreras - Last Filed: 09/21/17 06:05> Allergies/Home Meds <Renzo Contreras - Last Filed: 09/21/17 06:05> <RembertoJarvis - Last Filed: 09/21/17 06:14> Allergies/Adverse Reactions: Allergies seasonal Allergy (Uncoded 06/17/17 23:21) CONGESTION Review of Systems - Review of Systems Constitutional: Normal Eyes: Normal ENT: Normal Respiratory: Normal Cardiovascular: Normal Gastrointestinal: Abdominal Pain Genitourinary Female: Vaginal Bleeding Musculoskeletal: Back Pain Skin: Normal, Cellulitis Neurological: Normal Endocrine: Normal Hemo/Lymphatic: Normal Psychiatric: Normal <Renzo Contreras - Last Filed: 09/21/17 06:05> Physical Exam Vital Signs Reviewed: Yes Temperature: Afebrile Blood Pressure: Normal Pulse: Regular Respiratory Rate: Normal Appearance: Positive for: Well-Appearing, Non-Toxic Pain Distress: None Mental Status: Positive for: Alert and Oriented X 3 - Systems Exam Head: Present: Atraumatic, Normocephalic Pupils: Present: PERRL Extroacular Muscles: Present: EOMI Conjunctiva: Present: Normal Mouth: Present: Moist Mucous Membranes Neck: Present: Normal Range of Motion Respiratory/Chest: Present: Clear to Auscultation, Good Air Exchange. No: Respiratory Distress, Accessory Muscle Use Cardiovascular: Present: Regular Rate and Rhythm, Normal S1, S2. No: Murmurs Abdomen: Present: Normal Bowel Sounds. No: Tenderness, Distention, Peritoneal Signs Upper Extremity: Present: Normal Inspection. No: Cyanosis, Edema Lower Extremity: Present: Normal Inspection. No: Edema Neurological: Present: GCS=15, CN II-XII Intact, Speech Normal Skin: Present: Warm, Dry, Rashes, Normal Color Psychiatric: Present: Alert, Oriented x 3, Normal Insight, Normal Concentration <Renzo Contreras - Last Filed: 09/21/17 06:05> Vital Signs Temp Pulse Resp BP Pulse Ox 09/21/17 06:07 79 18 136/76 100 09/21/17 03:09 98 F 90 20 144/84 98 Medical Decision Making <Renzo Contreras - Last Filed: 09/21/17 06:05> <Jarvis Sr - Last Filed: 09/21/17 06:14> ED Course and Treatment: 09/21/17 03:41 given timing and worsening pain, concern for retained products of conception CBC, CMP, Transvaginal US 09/21/17 05:52 US does not show any gestational sac. Patient stable for discharge and to continue with pain medication patient has at home (Renzo Contreras) Impression: Pt seen and evaluated with director of medical staff services. Aware and agree with HPI, clinical findings, plan, and management. Pt presented for abdominal pain with associated back pain and vaginal bleeding. Pt recently underwent an elective on Misoprostol. Plan: -- Transvaginal US -- Labs -- IV fluids -- Ultram -- Reassess and disposition (Jarvis Sr) - Lab Interpretations Lab Results: 09/21/17 03:00 09/21/17 03:00 Lab Results 09/21/17 03:00: Sodium 141, Potassium 3.8, Chloride 103, Carbon Dioxide 30, Anion Gap 11, BUN 8, Creatinine 0.8, Est GFR ( Amer) > 60, Est GFR (Non- Af Amer) > 60, Random Glucose 107, Calcium 9.0, Total Bilirubin 0.2, AST 28, ALT 26, Alkaline Phosphatase 49, Total Protein 6.7, Albumin 3.6, Globulin 3.1, Albumin/Globulin Ratio 1.2 09/21/17 03:00: WBC 14.9 H D, RBC 4.20, Hgb 12.5, Hct 36.4, MCV 86.7, MCH 29.8, MCHC 34.3, RDW 13.7, Plt Count 281, MPV 9.2, Gran % 72.3 H, Lymph % (Auto) 20.0 L, [place] % (Auto) 5.8, Eos % (Auto) 1.6, Baso % (Auto) 0.3, Gran # 10.74 H, Lymph # (Auto) 3.0, [place] # (Auto) 0.9 H, Eos # (Auto) 0.2, Baso # (Auto) 0.04 - RAD Interpretation Radiology Orders: 09/21/17 03:31 OB TRANSVAGINAL [US] Stat - Medication Orders Current Medication Orders: Discontinued Medications Sodium Chloride (Sodium Chloride 0.9%) 1,000 mls @ 999 mls/hr IV .Q1H1M STA Stop: 09/21/17 04:25 Last Admin: 09/21/17 03:48 Dose: 999 mls/hr eMAR Start Stop Document 09/21/17 03:48 RD (Rec: 09/21/17 03:48 RD [id number]) Intravenous Solution Start Date 09/21/17 Start Time 03:48 End Date 09/21/17 End time 04:48 Total Infusion Time 60 Morphine Sulfate (Morphine) 4 mg IVP STAT STA Stop: 09/21/17 04:10 Last Admin: 09/21/17 04:14 Dose: 4 mg [facility] Pain Assessment Document 09/21/17 04:14 [facility] (Rec[facility] 09/21/17 04:15 [id number] Pain Reassessment Is this a pain reassessment? No Sleep Is patient sleeping during reassessment? No Presence of Pain Presence of Pain Yes Pain Scale Used Pain Scale Used Numeric Location Upper or Lower Lower Pain Location Body Site Abdomen Description Description Sharp Intensity of Pain at present 7 Acceptable Level of Pain 0 Pain Behavior Irritability Restlessness Aggravating Factors ADL's IVP Administration Document 09/21/17 04:14 [facility] (Rec: 09/21/17 04:15 [id number] Charges for Administration # of IVP Administrations 1 Tramadol HCl (Ultram) 50 mg PO STAT STA Stop: 09/21/17 03:21 Last Admin: 09/21/17 03:29 Dose: 50 mg Comments: Clarified medication administraion with DO TREY Maguire Pain Assessment Document 09/21/17 03:29 RD (Rec: 09/21/17 03:29 RD [id number]) Pain Reassessment Is this a pain reassessment? No Sleep Is patient sleeping during reassessment? No Presence of Pain Presence of Pain Yes - PA / GUEST SERVICES DIRECTOR / Resident Statement / has reviewed & agrees with the documentation as recorded. / has examined the patient and agrees with the treatment plan. <Renzo Contreras - Last Filed: 09/21/17 06:05> - PA / GUEST SERVICES DIRECTOR / Resident Statement / has reviewed & agrees with the documentation as recorded. / has examined the patient and agrees with the treatment plan. <Jarvis Sr - Last Filed: 09/21/17 06:14> Disposition/Present on Arrival - Present on Arrival Any Indicators Present on Arrival: No History of DVT/PE: No History of Uncontrolled Diabetes: No Urinary Catheter: No History of Decub. Ulcer: No History Surgical Site Infection Following: None - Disposition Have Diagnosis and Disposition been Completed?: Yes Disposition Time: 05:53 Patient Plan: Discharge <Renzo Contreras - Last Filed: 09/21/17 06:05> <Jarvis Sr - Last Filed: 09/21/17 06:14> - Disposition Diagnosis: Status post elective , Abdominal pain Disposition: HOME/ ROUTINE Patient Problems: Current Active Problems Problem Status Onset Abdominal pain Acute Status post elective Acute Condition: STABLE Additional Instructions: Please follow up with your primary care doctor w/in one weeks time. [facility] Please take Percocet for as prescribed as needed for pain Please come back to the ED if symptoms worsen Prescriptions: oxyCODONE/Acetaminophen [Percocet 5/325 mg Tab] 1 ea PO Q6H #12 tab
[2017-09-21 03:55] LABS: BASO # 0.04 K/mm3 (0.0-2.0); BASO % 0.3 % (0.0-3.0); EOS # 0.2 (0.0-0.7); EOS % 1.6 % (1.5-5.0); GRAN # 10.74 (1.4-6.5); GRAN % 72.3 % (50.0-68.0); HEMOGLOBIN 12.5 g/dL (12.0-16.0); MEAN CELL VOLUME 86.7 fl (80.0-105.0); MEAN CORPUSCULAR HEMOGLOBIN 29.8 pg (25.0-35.0); MEAN CORPUSCULAR HGB CONC 34.3 g/dl (31.0-37.0); MEAN PLATELET VOLUME 9.2 fl (7.0-11.0); MONO # 0.9 (0.1-0.6); MONO % 5.8 % (1.0-6.0); RBC 4.2 10^6/uL (3.5-6.1); RED CELL DISTRIBUTION WIDTH 13.7 % (11.5-14.5); WHITE BLOOD COUNT 14.9 10^3/ul (4.5-11.0)
[2017-09-21] MEDS ORDERED: Morphine 4 mg/ml ISec IVP STA (04:09)
[2017-09-21 04:18] LABS: ALB/GLOB RATIO 1.2 (1.1-1.8); ALBUMIN 3.6 g/dL (3.0-4.8); ALT/SGPT 26 U/L (7-56); AST/SGOT 28 U/L (14-36); BLOOD UREA NITROGEN 8 mg/dL (7-21); GFR AFRICAN-AMERICAN > 60; GFR NON-AFRICAN AMERICAN > 60
--- NOTE | 2017-09-21 05:45 | US ---
EXAM: US , Transvaginal EXAM DATE/TIME: 09/21/2017 3:31 AM CLINICAL HISTORY: 22 years old, female; Pain; complicated by abdominal or pelvic pain; Lower; First trimester; Gestational age or lmp: 08/04/2017; ; Patient HX: Previous ectopic; Additional info: Elective ab on misoprostal TECHNIQUE: Real-time transvaginal obstetrical ultrasound of the maternal pelvis and a first trimester with image documentation. Transvaginal imaging was used for better evaluation of the fetus and adnexa. COMPARISON: US - OB TRANSVAGINAL 2017-05-13 13:04 FINDINGS: The uterus measures 9 x 6 x 7 cm . The endometrium measures 21 mm. There is no intrauterine gestational sac identified. There is a 1.5 cm simple cyst in the right ovary and a 2 cm complex cyst in the right ovary. There is a 2 cm simple cyst the left ovary and a 1.5 cm complex cyst in the left ovary. Color flow and doppler vascular waveforms were demonstrated to both ovaries. There is no significant free fluid. IMPRESSION: No intra-or extrauterine gestational sac. In a patient with a positive test, differential diagnosis includes early IUP, AB, and ectopic . Short term serial beta-hCG levels are recommended along with follow-up ultrasound. Bilateral ovarian cysts, with one simple and one complex in each ovary as described in the body of the report..
[2017-09-21 06:08] VITALS: BP 136/76; PULSE 79; RESP 18; O2SAT 100
== END 2017-09-21 06:16 | disposition home or self-care (01) ==
LOC: ED 02:47
DX: R10.9 Unspecified abdominal pain (principal); Z98.890 Other specified postprocedural states
CPT/HCPCS: 76817; 80053; 85025; 96361; 96374; 99283; J2270; J7040

== ENCOUNTER 2018-01-11 12:13 | Emergency (ER) | payer OTHER ==
[2018-01-11 12:14] VITALS: BMI 29.8
[2018-01-11] MEDS ORDERED: Sodium Chloride 0.9% 1,000 ML IV STA (13:04)
--- NOTE | 2018-01-11 13:04 | ED PDOC ---
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 Patient associates her headache with phonophobia and notes having similar headache in past. Patient denies fever, chills, diaphoresis, shortness of breath, tick exposure, nausea, vomiting, diarrhea, or other complaints. Patient states she took Tylenol with no significant relief and reports getting similar headache once a month. Time/Duration: Prior to Arrival Symptom Onset: Sudden Symptom Course: Unchanged Activities at Onset: Rest Context: Home Past Medical History - Provider Review Nursing Documentation Reviewed: Yes - Past History Past History: No Previous - Infectious Disease Hx of Infectious Diseases: None - Tetanus Immunization Tetanus Immunization: Unknown - Reproductive Menopause: No - Past Medical History Past Medical History: No Previous - Cardiac Hx Cardiac Disorders: No - Pulmonary Hx Respiratory Disorders: No - Neurological Hx Neurological Disorder: No - HEENT Hx HEENT Disorder: Yes (Right eye surgery) Other/Comment: Rt eye corrective surgery - Renal Hx Renal Disorder: Yes - Endocrine/Metabolic Hx Endocrine Disorders: No - Hematological/Oncological Hx Blood Disorders: No - Integumentary Hx Dermatological Disorder: No - Musculoskeletal/Rheumatological Hx Musculoskeletal Disorders: No Hx Falls: No - Gastrointestinal Hx Gastrointestinal Disorders: No - Genitourinary/Gynecological Hx Genitourinary Disorders: Yes Hx Urinary Tract Infection: Yes - Psychiatric Hx Depression: No Hx Substance Use: No - Past Surgical History Past Surgical History: Non-Contributing - Surgical History Hx Eye Surgery: Yes (R eye x2) Other/Comment: . Right eye surgery - Anesthesia Hx Anesthesia: Yes Hx Anesthesia Reactions: No Hx Malignant Hyperthermia: No - Suicidal Assessment Feels Threatened In Home Enviroment: No Family/Social History - Physician Review Nursing Documentation Reviewed: Yes Family/Social History: Unknown Family HX Smoking Status: Never Smoked Hx Alcohol Use: No Hx Substance Use: No Hx Substance Use Treatment: No Allergies/Home Meds Allergies/Adverse Reactions: Allergies seasonal Allergy (Uncoded 06/17/17 23:21) CONGESTION Review of Systems - Review of Systems Constitutional: absent: Fatigue, Fevers Eyes: absent: Vision Changes ENT: Other (phonophobia) Respiratory: absent: SOB Cardiovascular: absent: Chest Pain Gastrointestinal: absent: Abdominal Pain Genitourinary Female: absent: Dysuria Skin: absent: Rash Neurological: Headache. absent: Dizziness Endocrine: absent: Diaphoresis Physical Exam Vital Signs Reviewed: Yes Vital Signs Temp Pulse Resp BP Pulse Ox 01/11/18 12:34 98.0 F 74 16 125/85 99 Temperature: Afebrile Blood Pressure: Normal Pulse: Regular Respiratory Rate: Normal Appearance: Positive for: Well-Appearing, Non-Toxic, Comfortable Pain Distress: None Mental Status: Positive for: Alert and Oriented X 3 - Systems Exam Head: Present: Atraumatic, Normocephalic Pupils: Present: PERRL Extroacular Muscles: Present: Other (exotropia of right eye ) Conjunctiva: Present: Normal Neck: Present: Normal Range of Motion (supple). No: MIDLINE TENDERNESS, Paraspinal Tenderness Respiratory/Chest: Present: Clear to Auscultation, Good Air Exchange. No: Respiratory Distress, Accessory Muscle Use, Wheezes, Decreased Breath Sounds, Rales, Retracting, Rhonchi Cardiovascular: Present: Regular Rate and Rhythm, Normal S1, S2. No: Murmurs Abdomen: Present: Normal Bowel Sounds. No: Tenderness, Distention, Peritoneal Signs, Rebound, Guarding Neurological: Present: GCS=15, CN II-XII Intact, Speech Normal, Motor Func Grossly Intact, Normal Sensory Function Skin: Present: Warm, Dry, Normal Color. No: Rashes Psychiatric: Present: Alert, Oriented x 3, Normal Insight, Normal Concentration Medical Decision Making ED Course and Treatment: 01/11/18 Impression: 22 y/o female with exotropia on right eye complaining of migraine since this morning. Differential Diagnoses: typical migraine Plan: -- Decadron, Toradol, Reglan, and Sodium Chloride -- Urinalysis -- Reassess and disposition Progress Notes: - Lab Interpretations Lab Results: Lab Results 01/11/18 13:00: Urine HCG, Qual Negative I have reviewed the lab results: Yes - Medication Orders Current Medication Orders: Discontinued Medications Dexamethasone (Decadron Inj) 10 mg IVP STAT STA Stop: 01/11/18 13:05 Last Admin: 01/11/18 13:31 Dose: 10 mg IVP Administration Document 01/11/18 13:31 [place] (Rec: 01/11/18 13:31 [email or web address] Charges for Administration # of IVP Administrations 1 Sodium Chloride (Sodium Chloride 0.9%) 1,000 mls @ 999 mls/hr IV .Q1H1M STA Stop: 01/11/18 14:04 Last Admin: 01/11/18 13:30 Dose: 999 mls/hr eMAR Start Stop Document 01/11/18 13:30 LA (Rec: 01/11/18 13:31 [email or web address]) Intravenous Solution Start Date 01/11/18 Start Time 13:31 End Date 01/11/18 End time 14:32 Total Infusion Time 61 Ketorolac Tromethamine (Toradol) 30 mg IVP STAT STA Stop: 01/11/18 13:06 Last Admin: 01/11/18 13:31 Dose: 30 mg MAR Pain Assessment Document 01/11/18 13:31 LA (Rec: 01/11/18 13:31 [email or web address] Pain Reassessment Is this a pain reassessment? No Sleep Is patient sleeping during reassessment? No Presence of Pain Presence of Pain Yes Pain Scale Used Pain Scale Used Numeric Description Intensity of Pain at present 10 IVP Administration Document 01/11/18 13:31 LA (Rec: 01/11/18 13:31 [place] [email or web address] Charges for Administration # of IVP Administrations 1 Metoclopramide HCl (Reglan) 10 mg IVP STAT STA Stop: 01/11/18 13:05 Last Admin: 01/11/18 13:31 Dose: 10 mg IVP Administration Document 01/11/18 13:31 [place] (Rec: 01/11/18 13:31 [email or web address] Charges for Administration # of IVP Administrations 1 - Scribe Statement The provider has reviewed the documentation as recorded by the Kimberly Gallegos Provider Scribe Attestation: All medical record entries made by the Scribe were at my direction and personally dictated by me. I have reviewed the chart and agree that the record accurately reflects my personal performance of the history, physical exam, medical decision making, and the department course for this patient. I have also personally directed, reviewed, and agree with the discharge instructions and disposition. Disposition/Present on Arrival - Present on Arrival Any Indicators Present on Arrival: No History of DVT/PE: No History of Uncontrolled Diabetes: No Urinary Catheter: No History of Decub. Ulcer: No History Surgical Site Infection Following: None - Disposition Have Diagnosis and Disposition been Completed?: Yes Diagnosis: Migraine Disposition: HOME/ ROUTINE Disposition Time: 14:18 Patient Plan: Discharge Patient Problems: Current Active Problems Problem Status Onset Migraine Acute Condition: IMPROVED Discharge Instructions (ExitCare): Migraine Headache (DC) Prescriptions: Acetaminophen/Butalbital/Caf [Fioricet] 1 tab PO Q6 PRN #20 tab PRN Reason: Headache Referrals: Gokul Ceballos MD [Staff Provider] - Follow up with primary (as needed if headaches persist) Forms: [facility] (Maltese), WORK NOTE
[2018-01-11 14:30] VITALS: RESP 18; TEMP 98; O2SAT 100
[2018-01-11 15:09] VITALS: BP 120/83; PULSE 73
== END 2018-01-11 15:08 | disposition home or self-care (01) ==
LOC: ED 12:13
DX: G43.909 Migraine, unspecified, not intractable, without status migrainosus (principal)
CPT/HCPCS: 84703; 96361; 96374; 96375; 99285; J1100; J1885; J2765; J7030

== ENCOUNTER 2018-02-20 00:06 | Emergency (ER) | payer OTHER ==
[2018-02-20 00:06] VITALS: BMI 29.8
[2018-02-20 00:16] VITALS: RESP 18; TEMP 98
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
[2018-02-20 04:09] VITALS: BP 140/72; PULSE 86; O2SAT 100
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
== END 2018-02-20 04:08 | disposition home or self-care (01) ==
LOC: ED 00:06
DX: S09.90XA Unspecified injury of head, initial encounter (principal); Y04.0XXA Assault by unarmed brawl or fight, initial encounter

== ENCOUNTER 2018-03-11 07:45 | Emergency (ER) | payer OTHER ==
[2018-03-11 07:46] VITALS: BMI 29.8
[2018-03-11 08:12] VITALS: BP 131/85; TEMP 98.4
[2018-03-11 08:19] VITALS: PULSE 68; RESP 18; O2SAT 97
--- NOTE | 2018-03-11 08:20 | ED PDOC ---
Arrival/HPI - General Chief Complaint: Cough, Cold, Congestion Time Seen by Provider: 03/11/18 07:50 Historian: Patient - History of Present Illness Narrative History of Present Illness (Text): 03/11/18 08:15 23 year old female, whose past medical history includes allergic rhinitis, presents to the emergency department complaining of worsening nasal congestion associated with sore throat for the past week. Patient reports she wakes up to a runny nose and has taken Allgera and Tylenol with no relief. Patient also reports a headache, but denies any fever, chills, shortness of breath, dizziness , or any other complaints. PMD: None Time/Duration: 1 week Symptom Onset: Gradual Symptom Course: Worsening Activities at Onset: Light Context: Home Past Medical History - Provider Review Nursing Documentation Reviewed: Yes - Past History Past History: No Previous - Infectious Disease Hx of Infectious Diseases: None - Tetanus Immunization Tetanus Immunization: Unknown - Past Medical History Past Medical History: No Previous - Cardiac Hx Cardiac Disorders: No - Pulmonary Hx Respiratory Disorders: No - Neurological Hx Neurological Disorder: No - HEENT Hx HEENT Disorder: Yes (Right eye surgery) Other/Comment: Rt eye corrective surgery - Renal Hx Renal Disorder: Yes - Endocrine/Metabolic Hx Endocrine Disorders: No - Hematological/Oncological Hx Blood Disorders: No - Integumentary Hx Dermatological Disorder: No - Musculoskeletal/Rheumatological Hx Musculoskeletal Disorders: No Hx Falls: No - Gastrointestinal Hx Gastrointestinal Disorders: No - Genitourinary/Gynecological Hx Genitourinary Disorders: Yes Hx Urinary Tract Infection: Yes - Psychiatric Hx Depression: No Hx Substance Use: No - Past Surgical History Past Surgical History: Non-Contributing - Surgical History Hx Eye Surgery: Yes (R eye x2) Other/Comment: . Right eye surgery - Anesthesia Hx Anesthesia: Yes Hx Anesthesia Reactions: No Hx Malignant Hyperthermia: No - Suicidal Assessment Feels Threatened In Home Enviroment: No Family/Social History - Physician Review Nursing Documentation Reviewed: Yes Family/Social History: No Known Family HX Smoking Status: Never Smoked Hx Alcohol Use: Yes Hx Substance Use: No Hx Substance Use Treatment: No Allergies/Home Meds Allergies/Adverse Reactions: Allergies seasonal Allergy (Uncoded 03/11/18 08:09) CONGESTION Home Medications: Home Meds Medication Instructions Recorded Confirmed Fexofenadine/Pseudoephedrine 0 each PO PRN PRN 03/11/18 03/11/18 [Johanna-D 12 Hour Tablet] Review of Systems - Physician Review All systems were reviewed & negative as marked: Yes - Review of Systems Constitutional: absent: Fevers, Other (Chills) ENT: Sore Throat, Rhinorrhea, Sinus Congestion Respiratory: absent: SOB Neurological: Headache. absent: Dizziness Physical Exam Vital Signs Reviewed: Yes Vital Signs Temp Pulse Resp BP Pulse Ox 03/11/18 08:18 98.4 F 68 18 97 03/11/18 08:03 98.4 F 66 19 131/85 98 Temperature: Afebrile Blood Pressure: Normal Pulse: Regular Respiratory Rate: Normal Appearance: Positive for: Well-Appearing, Non-Toxic, Comfortable Pain Distress: None Mental Status: Positive for: Alert and Oriented X 3 - Systems Exam Head: Present: Atraumatic, Normocephalic. No: Other (Sinus tenderness) Pupils: Present: PERRL Extroacular Muscles: Present: EOMI Conjunctiva: Present: Normal Mouth: Present: Moist Mucous Membranes Pharnyx: Present: Normal Nose (External): Present: Atraumatic Nose (Internal): Present: Other (Nasal congestion; left nasal turbinate mild swelling). No: No Active Bleeding, Epistaxis Neck: Present: Normal Range of Motion Respiratory/Chest: Present: Clear to Auscultation, Good Air Exchange. No: Respiratory Distress, Accessory Muscle Use Cardiovascular: Present: Regular Rate and Rhythm, Normal S1, S2. No: Murmurs Abdomen: No: Tenderness, Distention, Peritoneal Signs Back: Present: Normal Inspection Upper Extremity: Present: Normal Inspection. No: Cyanosis, Edema Lower Extremity: Present: Normal Inspection. No: Edema Neurological: Present: GCS=15, CN II-XII Intact, Speech Normal Skin: Present: Warm, Dry, Normal Color. No: Rashes Psychiatric: Present: Alert, Oriented x 3, Normal Insight, Normal Concentration Medical Decision Making ED Course and Treatment: 03/11/18 08:15 Impression: 23 year old female presents complaining of worsening nasal congestion associated with sore throat, rhinorrhea, and headache for the past week. Differential Diagnosis included but are not limited to: Allergic rhinitis VS Viral rhinitis Plan: -- Reassess and disposition Progress Notes: No indication clinical or by history for antibiotics. Offered patient Sudafed and Flonase nasal spray for worsening symptoms, but patient declined wanting any due to already trying these medications a few months ago. Recommended patient to followup with business continuity specialist and PMD. Patient walked out after these recommendations and refused to stay to receive these prescriptions. I asked her to please stay and she just walked out. - Scribe Statement The provider has reviewed the documentation as recorded by the Kimberly Paula Provider Scribe Attestation: All medical record entries made by the Scribe were at my direction and personally dictated by me. I have reviewed the chart and agree that the record accurately reflects my personal performance of the history, physical exam, medical decision making, and the department course for this patient. I have also personally directed, reviewed, and agree with the discharge instructions and disposition. Disposition/Present on Arrival - Present on Arrival Any Indicators Present on Arrival: No History of DVT/PE: No History of Uncontrolled Diabetes: No Urinary Catheter: No History of Decub. Ulcer: No History Surgical Site Infection Following: None - Disposition Have Diagnosis and Disposition been Completed?: Yes Diagnosis: Rhinitis Disposition: LEFT W/O TREATMENT - ER ONLY Disposition Time: 08:18 Condition: GOOD Referrals: Ravi Finch MD [Primary Care Provider] - Follow up with primary Forms: [employer] (Bulgarian)
== END 2018-03-11 08:19 | disposition left against medical advice (07) ==
LOC: ED 07:45
DX: J31.0 Chronic rhinitis (principal)

== ENCOUNTER 2018-07-25 08:37 | Emergency (ER) | payer OTHER ==
[2018-07-25 08:44] VITALS: BMI 29.3
[2018-07-25] MEDS ORDERED: Benzocaine/Menthol (Cepacol) Lozenge MT PRN (09:11)
[2018-07-25] MEDS ORDERED: guaiFENesin 100 mg/5 ml Syrup UD PO ONE (09:12)
--- NOTE | 2018-07-25 09:16 | ED PDOC ---
Arrival/HPI - General Historian: Patient - History of Present Illness Narrative History of Present Illness (Text): Patient is a 23 yr old female with PMH significant for pyelonephritis who presents today with throat pain, cough, congestion headache and bodyaches x 3-4 days. patient states she did not get the flu shot this year. she denies any rhinorrhea but endorses productive cough with yellow sputum as well as fatigue and nausea. Patient denies other associated symptoms such as dizziness, Chest pain, SOB, difficulty breathing wheezing, abdominal pain, emesis, stool changes, dysuria and extremity pain/weakness. 07/25/18 09:13 Time/Duration: < week (3-4 days) Symptom Onset: Gradual Symptom Course: Worsening Quality: Other Severity Level: 8 <Cherry Monterroso - Last Filed: 07/25/18 10:47> <Serjio Jain - Last Filed: 07/25/18 14:17> - General Chief Complaint: Flu-like Symptoms Time Seen by Provider: 07/25/18 09:10 Past Medical History - Provider Review Nursing Documentation Reviewed: Yes - Past History Past History: No Previous - Infectious Disease Hx of Infectious Diseases: None - Tetanus Immunization Tetanus Immunization: Unknown - Reproductive Menopause: No - Past Medical History Past Medical History: No Previous - Cardiac Hx Cardiac Disorders: No - Pulmonary Hx Respiratory Disorders: No - Neurological Hx Neurological Disorder: No - HEENT Hx HEENT Disorder: Yes (Right eye surgery) Other/Comment: Rt eye corrective surgery - Renal Hx Renal Disorder: Yes - Endocrine/Metabolic Hx Endocrine Disorders: No - Hematological/Oncological Hx Blood Disorders: No - Integumentary Hx Dermatological Disorder: No - Musculoskeletal/Rheumatological Hx Musculoskeletal Disorders: No Hx Falls: No - Gastrointestinal Hx Gastrointestinal Disorders: No - Genitourinary/Gynecological Hx Genitourinary Disorders: Yes Hx Urinary Tract Infection: Yes - Psychiatric Hx Depression: No Hx Substance Use: No - Past Surgical History Past Surgical History: Non-Contributing - Surgical History Hx Eye Surgery: Yes (R eye x2) Other/Comment: . Right eye surgery - Anesthesia Hx Anesthesia: Yes Hx Anesthesia Reactions: No Hx Malignant Hyperthermia: No - Suicidal Assessment Feels Threatened In Home Enviroment: No <Cherry Monterroso - Last Filed: 07/25/18 10:47> Family/Social History - Physician Review Nursing Documentation Reviewed: Yes Family/Social History: Unknown Family HX Smoking Status: Never Smoked Hx Alcohol Use: Yes Frequency of alcohol use: Socially Hx Substance Use: No Hx Substance Use Treatment: No <Cherry Monterroso - Last Filed: 07/25/18 10:47> Allergies/Home Meds <Cherry Monterroso - Last Filed: 07/25/18 10:47> <Serjio Jain - Last Filed: 07/25/18 14:17> Allergies/Adverse Reactions: Allergies seasonal Allergy (Uncoded 07/25/18 08:47) CONGESTION Review of Systems - Physician Review All systems were reviewed & negative as marked: Yes - Review of Systems Constitutional: Fatigue, Fevers. absent: Weight Change, Night Sweats Eyes: absent: Vision Changes ENT: Sore Throat. absent: Hearing Changes, Rhinorrhea Respiratory: Cough, Sputum. absent: SOB, Wheezing Cardiovascular: absent: Chest Pain, Palpitations, Calf Pain Gastrointestinal: Nausea. absent: Abdominal Pain, Stool Changes, Constipation, Diarrhea, Vomiting Genitourinary Female: absent: Dysuria, Frequency Musculoskeletal: Myalgias. absent: Arthralgias, Back Pain, Neck Pain Skin: absent: Rash, Skin Lesions Neurological: Headache. absent: Dizziness, Speech Changes Endocrine: absent: Diaphoresis Hemo/Lymphatic: Adenopathy (cervical) <Cherry Monterroso - Last Filed: 07/25/18 10:47> Physical Exam Vital Signs Temp Pulse Resp BP Pulse Ox 07/25/18 08:52 101.6 F H 07/25/18 08:44 101.6 F H 96 H 20 161/88 H 99 Temperature: Febrile Blood Pressure: Hypertensive Pulse: Tachycardic Respiratory Rate: Normal Appearance: Positive for: Well-Appearing, Non-Toxic Pain Distress: Mild Mental Status: Positive for: Alert and Oriented X 3 - Systems Exam Head: Present: Atraumatic, Normocephalic Extroacular Muscles: Present: EOMI Conjunctiva: Present: Normal Ears: Present: NORMAL TM (right), TM Bulging (left ), Fluid (left). No: Erythema, Normal Canal, TM Perf Mouth: Present: Moist Mucous Membranes, Normal Lips, Normal Tounge, Normal Teeth. No: Drooling Pharnyx: Present: ERYTHEMA, Soft Palate/Uvular Edema. No: EXUDATE, TONSILS ENLARGED, Peritonsilar Swelling, Muffled/Hoarse Voice, Strider Nose (Internal): Present: Moist, Boggy, Clear Mucous Neck: Present: Normal Range of Motion, Lymphadenopathy Respiratory/Chest: Present: Clear to Auscultation, Good Air Exchange. No: Respiratory Distress, Accessory Muscle Use, Wheezes Cardiovascular: Present: Normal S1, S2, Tachycardic. No: Murmurs Abdomen: No: Tenderness, Distention, Guarding Upper Extremity: Present: Normal Inspection. No: Cyanosis, Edema Lower Extremity: Present: Normal Inspection. No: Edema, CALF TENDERNESS Neurological: Present: GCS=15, CN II-XII Intact, Speech Normal Skin: Present: Warm, Dry, Normal Color. No: Rashes, Diaphoretic Lymphatic: Present: Cervical Adenopathy Psychiatric: Present: Alert, Oriented x 3, Normal Insight, Normal Concentration <Cherry Monterroso - Last Filed: 07/25/18 10:47> Vital Signs Temp Pulse Resp BP Pulse Ox 07/25/18 10:59 99.0 F 87 18 138/83 97 07/25/18 10:21 99.0 F 07/25/18 08:52 101.6 F H 07/25/18 08:44 101.6 F H 96 H 20 161/88 H 99 <Serjio Jain - Last Filed: 07/25/18 14:17> Medical Decision Making ED Course and Treatment: Impression: 23 yr old female with flu like illness Plan: flu swab tylenol for fever cepacol lozenges guafenesin cbc cmp reassess and dispo 07/25/18 09:21 pt positive for influenza A, tamiflu given 07/25/18 09:36 - Lab Interpretations Lab Results: Lab Results 07/25/18 08:00: Influenza Typ A,B (EIA) Pos for influenza a H I have reviewed the lab results: Yes Interpretation: Abnormal lab values - Medication Orders Current Medication Orders: Benzocaine/Menthol (Cepacol Sore Throat) 1 alexander MT Q2H PRN PRN Reason: Sore Throat Guaifenesin (Robitussin) 100 mg PO ONCE ONE Stop: 07/25/18 09:13 Discontinued Medications Acetaminophen (Tylenol 325mg Tab) 975 mg PO STAT STA Stop: 07/25/18 08:49 Last Admin: 07/25/18 08:52 Dose: 975 mg MAR Pain/Vitals Document 07/25/18 08:52 MR (Rec: 07/25/18 08:55 [id number]) Pain Reassessment Is This A Pain ReAssessment? No Sleep Is patient sleeping during reassessment? No Presence of Pain Presence of Pain Yes Location Left, Right or Bilateral Bilateral Pain Location Body Site Throat Description Burning Intensity 6 Scale Used Numeric Pain Behavior Facial Grimacing Vitals Temperature (97.6 F-99.6 F) 101.6 F Temperature Source Oral <Cherry Monterroso - Last Filed: 07/25/18 10:47> ED Course and Treatment: 07/25/18 09:45 Patient is a 23 year old female presenting to the emergency room complaining of flu like symptoms. In agreement with resident note, which includes further HPI details. Patient was seen and evaluated with resident, came up with plan and treatment together. - Lab Interpretations Lab Results: Total Bilirubin 0.3 mg/dL (0.2-1.3) 07/25/18 10:18 AST 38 U/L (14-36) H D 07/25/18 10:18 ALT 32 U/L (7-56) 07/25/18 10:18 Alkaline Phosphatase 54 U/L (38-126) 07/25/18 10:18 Total Protein 7.2 g/dL (5.8-8.3) 07/25/18 10:18 Albumin 4.0 g/dL (3.0-4.8) 07/25/18 10:18 Globulin 3.2 gm/dL 07/25/18 10:18 Albumin/Globulin Ratio 1.3 (1.1-1.8) 07/25/18 10:18 - Medication Orders Current Medication Orders: Discontinued Medications Acetaminophen (Tylenol 325mg Tab) 975 mg PO STAT STA Stop: 07/25/18 08:49 Last Admin: 07/25/18 08:52 Dose: 975 mg MAR Pain/Vitals Document 07/25/18 08:52 MR (Rec: 07/25/18 08:55 MR [id number]) Pain Reassessment Is This A Pain ReAssessment? No Sleep Is patient sleeping during reassessment? No Presence of Pain Presence of Pain Yes Location Left, Right or Bilateral Bilateral Pain Location Body Site Throat Description Burning Intensity 6 Scale Used Numeric Pain Behavior Facial Grimacing Vitals Temperature (97.6 F-99.6 F) 101.6 F Temperature Source Oral Benzocaine/Menthol (Cepacol Sore Throat) 1 alexander MT Q2H PRN PRN Reason: Sore Throat Last Admin: 07/25/18 09:53 Dose: 1 alexander Guaifenesin (Robitussin) 100 mg PO ONCE ONE Stop: 07/25/18 09:13 Last Admin: 07/25/18 09:45 Dose: 100 mg Oseltamivir Phosphate (Tamiflu Cap) 75 mg PO ONCE ONE; Protocol Stop: 07/25/18 09:36 Last Admin: 07/25/18 09:45 Dose: 75 mg <Serjio Jain - Last Filed: 07/25/18 14:17> - PA / [employer] INST[employer]ER / Resident Statement / has reviewed & agrees with the documentation as recorded. MD/DO has examined the patient and agrees with the treatment plan. - Scribe Statement The provider has reviewed the documentation as recorded by the Jeancarlosibomid Sun All medical record entries made by the Kimberly were at my direction and personally dictated by me. I have reviewed the chart and agree that the record accurately reflects my personal performance of the history, physical exam, medical decision making, and the department course for this patient. I have also personally directed, reviewed, and agree with the discharge instructions and disposition. <Serjio Jain - Last Filed: 07/25/18 14:17> Disposition/Present on Arrival - Present on Arrival Any Indicators Present on Arrival: No History of DVT/PE: No History of Uncontrolled Diabetes: No Urinary Catheter: No History of Decub. Ulcer: No History Surgical Site Infection Following: None - Disposition Have Diagnosis and Disposition been Completed?: Yes Disposition Time: 10:15 Patient Plan: Discharge <Cherry Monterroso - Last Filed: 07/25/18 10:47> <Serjio Jain - Last Filed: 07/25/18 14:17> - Disposition Diagnosis: Influenza A Disposition: HOME/ ROUTINE Condition: FAIR Discharge Instructions (ExitCare): Flu, Adult (DC) Additional Instructions: Please follow up with your primary care physician within 3-5 days If your symptoms worsen, persist or if new concerning symptoms occur please return to the nearest ED immediately for further evaluation Prescriptions: Benzocaine/Menthol [Cepacol Sore Throat] 1 alexander MM Q3 #10 alexander Guaifenesin [Adult Wal-Tussin] 100 mg PO Q4 #1 liquid Oseltamivir Cap [Tamiflu] 75 mg PO BID #10 cap Referrals: PCP,NO [Primary Care Provider] - Follow up with primary Forms: [employer] (Australian)
[2018-07-25 10:21] VITALS: TEMP 99
[2018-07-25 10:31] LABS: BASO # 0.02 K/mm3 (0.0-2.0); BASO % 0.3 % (0.0-3.0); EOS # 0.1 (0.0-0.7); EOS % 1.6 % (1.5-5.0); HEMOGLOBIN 13.1 g/dL (12.0-16.0); LYMPH # 0.9 (1.2-3.4); LYMPH % 14.5 % (22.0-35.0); MEAN CELL VOLUME 91.2 fl (80.0-105.0); MEAN CORPUSCULAR HEMOGLOBIN 30.3 pg (25.0-35.0); MEAN CORPUSCULAR HGB CONC 33.2 g/dl (31.0-37.0); MEAN PLATELET VOLUME 9.2 fl (7.0-11.0); MONO # 0.5 (0.1-0.6); MONO % 7.9 % (1.0-6.0); RBC 4.33 10^6/uL (3.5-6.1); RED CELL DISTRIBUTION WIDTH 13.3 % (11.5-14.5); WHITE BLOOD COUNT 6.4 10^3/uL (4.5-11.0)
[2018-07-25 10:56] LABS: BLOOD UREA NITROGEN 8 mg/dL (7-21); CALCIUM 8.7 mg/dL (8.4-10.5); GFR NON-AFRICAN AMERICAN > 60
[2018-07-25 10:57] LABS: ALB/GLOB RATIO 1.3 (1.1-1.8); ALT/SGPT 32 U/L (7-56); AST/SGOT 38 U/L (14-36)
[2018-07-25 11:00] VITALS: BP 138/83; PULSE 87; RESP 18; O2SAT 97
== END 2018-07-25 11:09 | disposition home or self-care (01) ==
LOC: ED 08:37
DX: J10.1 Influenza due to other identified influenza virus with other respiratory manifestations (principal)